=== PATIENT | female | born 1955 | race Caucasian/White ===

== ENCOUNTER 2021-03-09 09:59 | Emergency (ER) | payer OTHER ==
[2021-03-09] MEDS ORDERED: Motrin,Rufen800 MG PO (13:25)
== END 2021-03-09 13:34 | disposition home or self-care (01) ==
LOC: ED 09:59
DX: S59.901A Unspecified injury of right elbow, initial encounter (principal); Z88.2 Allergy status to sulfonamides; X50.0XXA Overexertion from strenuous movement or load, initial encounter; Y93.89 Activity, other specified; Y92.69 Other specified industrial and construction area as the place of occurrence of the external cause; Y99.0 Civilian activity done for income or pay